=== PATIENT | male | born 1960 | race Caucasian/White ===

== ENCOUNTER 2019-12-11 12:36 | Observation (INO) | payer OTHER ==
[~2019-12-11] VITALS: Ht 190.5 cm; Wt 123.6 kg
[2019-12-11] VITALS (11 sets, daily range): BP systolic 111–139; BP diastolic 61–74
[2019-12-11] MEDS ORDERED: LISI-338 PO (12:53)
[2019-12-11] MEDS ORDERED: EMPA10TA PO (12:53)
[2019-12-11] MEDS ORDERED: CRESTOR5 MG PO (12:53)
[2019-12-11] MEDS ORDERED: INSU100V12 SQ (12:53)
[2019-12-11] MEDS ORDERED: ASPI81TA50 PO (12:53)
[2019-12-11] MEDS ORDERED: HUM100VI5 SQ (12:53)
[2019-12-11 13:04] LABS: HEMATOCRIT 49.2 % (39.0-53.0); HEMOGLOBIN 16.9 g/dL (13.0-17.5); RED BLOOD COUNT 5.5 x10^6/uL (4.30-5.70); RED CELL DISTRIBUTION WIDTH 13.1 % (11.5-14.5); WHITE BLOOD COUNT 8.1 x10^3/uL (4.0-11.0)
[2019-12-11 13:11] LABS: CALCIUM 9.4 mg/dL (8.5-10.1); CREATININE 0.9 mg/dL (0.7-1.3); GFR 86.1
[2019-12-11 13:16] LABS: PROTHROMBIN TIME PATIENT 12.1 SEC (11.7-14.0)
[2019-12-11] MEDS ORDERED: LIDOCAINE 1% PF 2 ML VIAL. ONE (13:32)
[2019-12-11] MEDS ORDERED: IODIXANOL 320 MG/ML 100 ML VIAL. ONE (13:32)
[2019-12-11] MEDS ORDERED: fentaNYL PF VIAL 100 MCG/2 ML VIAL IV ONE (13:45)
[2019-12-11] MEDS ORDERED: MIDAZOLAM HCL/PF 5 MG/5 ML VIAL. IV ONE (13:45)
[2019-12-11] MEDS ORDERED: HEPARIN for IV BOLUS 10,000 UNIT/10 ML VIAL. IART ONE (13:45)
[2019-12-11] MEDS ORDERED: CONTRAST GIVEN. MC PRN (13:45)
[2019-12-11] MEDS ORDERED: IODIXANOL 320 MG/ML 100 ML VIAL. IART ONE (13:45)
[2019-12-11] MEDS ORDERED: LIDOCAINE 1% PF 2 ML VIAL. INJ ONE (13:45)
[2019-12-11] MEDS ORDERED: VERAPAMIL 5 MG/2 ML VIAL. IART ONE (13:45)
[2019-12-11] MEDS ORDERED: NITROGLYCERIN 200 MCG/2 ML SYRINGE FOR CATH/VASC LAB. IART ONE (13:45)
[2019-12-11] MEDS ORDERED: BIVALIRUDIN 250 MG VIAL. IV ONE ×3 (14:31→15:00)
[2019-12-11] MEDS ORDERED: ASPIRIN 325 MG TABLET PO ONE (15:00)
[2019-12-11] MEDS ORDERED: TICAGRELOR 90 MG TABLET. PO ONE (15:00)
[2019-12-11] MEDS: IV 1/2 NORMAL SALINE 1,000 ML IV SCH (15:32)
--- NOTE | 2019-12-11 15:32 | PDOC ---
MODERATE SEDATION ASSESSMENT RISKS/ALTERNATIVES Risks/Alternatives Risks and alternatives of this type of sedation and procedure discussed with: RISK/ALTERNATIVES: Patient H & P ON CHART H & P H & P on chart and reviewed for co-morbid conditions and appropriate labs. H&P ON CHART: Yes STATUS PREG STATUS ASSESSED: N/A MEDS/ALLERGIES REVIEWED Meds/Allergies Reviewed Medications and Allergies including time and route of recently administered narcotics and sedatives. MEDS/ALLERGIES REVIEWED: Yes ASA RATING ASA RATING: II AIRWAY ASSESSMENT Airway Assessment Airway patency, oral function limitations, presence of caps, crowns, dentures, partials, and ability to extend neck assessed. AIRWAY ASSESSMENT: Yes MALLAMPATI SCORE MALLAMPATI SCORE: II PRE-SEDATION ASSESSMENT PRE-SEDATION ASSESSMENT: Yes ADRIANNA CABA MD Dec 11, 2019 15:32
--- NOTE | 2019-12-11 15:43 | CARD ---
MR#: [id number] Date of Study: 12/11/2019 Ordering Physician: ADRIANNA NEWSOME, Referring Physician: ADRIANNA NEWSOME Tech: Leticia German APPROVED REPORT Technologist: Leticia German Nurse: Vikki Amin RN Procedure(s) performed: 1. Left heart catheterization and selective coronary angiography via right t ransradial approach 2. Successful PCI/drug eluting stent placement to the left anterior descending artery fl time: 12.8 mins dose: 88 gycm2 contrast: 130 ml visi moderate sedation: 36 mins INDICATION The indication(s) include : unstable angina . CSHA Clinical Frailty Scale CSHA Clinical Frailty Scale: Managing Well Heart Failure Heart Failure: No PROCEDURE NARRATIVE After explaining the risks, benefits and alternative options, informed consent was obtained from get ent. Patient was brought to the cardiac Full Stack Software Developer and right wrist was prepped and draped in the usual fashion after confirming a positive modified Aaron's test. Arterial access was obtained in the righ t radial artery and a 6 Greek sheath was inserted. 6 Greek Maxwell and 6 Greek JR4 catheters were used to perform selective angiography of the left and right coronary arteries respectively. The follo wing findings were noted. FINDINGS Coronary angiography: a. The left main coronary artery arose from the left sinus of Valsalva, gave rise to the left anteri or descending and left circumflex arteries and did not show any significant stenosis. b. The left anterior descending artery showed critical 90-95% stenosis involving the midsegment. c. The left circumflex artery did not show any significant stenosis. d. The right coronary artery was a large and dominant vessel arising from the right sinus of Valsalv a that did not show any significant stenosis. INTERVENTIONS The left main coronary artery was engaged with a 6 Greek EBU 3.5 guide catheter. The stenosis in the midsegment of the left anterior descending artery was crossed with a 0.014 inch Umbrella Here Pro water guid ewire. This was predilated with a 3.0 x 12 mm euphora balloon following which this was successfully t reated with a 3.5 x 18 mm resolute thao drug-eluting stent. Follow-up angiography showed resolution o f the stenosis to 0% with RADHA-3 distal flow. Patient tolerated the procedure well. Hemostasis was ac hieved using TR band. There were no immediate complications. RADHA Flow RADHA Flow (Pre-Intervention): RADHA-2 RADHA Flow (Post-Intervention): RADHA-3 Conclusion 1. Severe single-vessel coronary artery disease involving left anterior descending artery 2. Successful PCI/drug eluting stent placement to the left anterior descending artery Recommendations 1. Aspirin 81 mg daily 2. Ticagrelor 90 mg twice daily 3. Cardiovascular risk factor modification 4. Check 2-D echo to assess LV systolic function Signed by : Adrianna Newsome, Electronically Approved : 12/11/2019 15:43:21
[2019-12-11] MEDS ORDERED: fentaNYL PF VIAL 100 MCG/2 ML VIAL IV PRN (15:45)
[2019-12-11] MEDS ORDERED: ACETAMINOPHEN 325 MG TABLET. PO PRN (15:45)
[2019-12-11] MEDS ORDERED: NITROGLYCERIN SUBLINGUAL 0.4 MG BOTTLE OF 25. SL PRN (15:45)
[2019-12-11] MEDS ORDERED: 0.9 % SODIUM CHLORIDE 10 ML DISP.SYRIN. IV PRN (15:45)
[2019-12-11] MEDS ORDERED: INSULIN NPH/REG INSULIN 70/30 300 UNITS/3 ML INSULN.PEN. SQ SCH (17:00)
[2019-12-11] MEDS ORDERED: ROSU10TA26 PO (17:04)
[2019-12-11] MEDS: CARVEDILOL 3.125 MG TABLET. PO SCH (18:14)
--- NOTE | 2019-12-11 19:45 | NUR ---
Pt in bed assessment completed vss poc explained pt denied pain at bedside call light in reach will resume care and continue to monitor pt.Rt wrist vascular site with positive pulse all air out of tr band will monitor site.
[2019-12-11] MEDS ORDERED: ATORVASTATIN CALCIUM 40 MG TABLET. PO SCH ×2 (21:00)
[2019-12-12] MEDS: IV 1/2 NORMAL SALINE 1,000 ML IV SCH (01:32)
[2019-12-12 06:14] LABS: CALCIUM 8.6 mg/dL (8.5-10.1); CREATININE 0.8 mg/dL (0.7-1.3); GFR 98.6; POTASSIUM 3.7 mmol/L (3.5-5.1)
[2019-12-12 07:00] VITALS: BP 129/69
[2019-12-12] MEDS ORDERED: TICA90TA PO (07:41)
[2019-12-12] MEDS ORDERED: ROSU10TA26 PO (07:41)
[2019-12-12] MEDS ORDERED: CARV3.1210 PO (07:41)
[2019-12-12] MEDS ORDERED: NITR0.4T24 SL (07:41)
--- NOTE | 2019-12-12 07:43 | PDOC3 ---
SARAHY QUARLES RESTAURANT BUSSER 12/12/19 0743: Discharge Summary Visit Information Date of Admission: Dec 11, 2019 Date of Discharge: Dec 12, 2019 Admitting Diagnosis: Unstable angina, DM2, HTN, HLP Final Diagnosis CAD, post PCI, DM2, HTN, HLP Brief Hospital Course Allergies Allergies Coded Allergies Type Severity Reaction Last Updated Verified Penicillins Allergy Intermediate Hives 12/11/19 Yes metformin Adverse Reaction Intermediate Diarrhea 12/11/19 Yes Vital Signs Vital Signs Date Time Temp Pulse Resp B/P (MAP) Pulse Ox O2 Delivery O2 Flow Rate FiO2 12/11/19 22:47 98.6 70 16 111/64 (80) 96 Room Air 98.6 12/11/19 15:12 2.0 Lab Results Laboratory Tests Test 12/11/19 12:55 12/11/19 17:19 12/11/19 21:23 12/12/19 05:08 White Blood Count 8.1 x10^3/uL (4.0-11.0) Red Blood Count 5.50 x10^6/uL (4.30-5.70) Hemoglobin 16.9 g/dL (13.0-17.5) Hematocrit 49.2 % (39.0-53.0) Mean Corpuscular Volume 90 fL (79-100) Mean Corpuscular Hemoglobin 31 pg (25-35) Mean Corpuscular Hemoglobin Concent 34 g/dL (31-37) Red Cell Distribution Width 13.1 % (11.5-14.5) Platelet Count 217 x10^3/uL (140-400) Prothrombin Time 12.1 SEC (11.7-14.0) Prothromb Time International Ratio 0.9 (0.8-1.1) Sodium Level 144 mmol/L (136-145) 140 mmol/L (136-145) Potassium Level 4.0 mmol/L (3.5-5.1) 3.7 mmol/L (3.5-5.1) Chloride Level 104 mmol/L (98-107) 104 mmol/L (98-107) Carbon Dioxide Level 29 mmol/L (21-32) 26 mmol/L (21-32) Anion Gap 11 (6-14) 10 (6-14) Blood Urea Nitrogen 21 mg/dL (8-26) 19 mg/dL (8-26) Creatinine 0.9 mg/dL (0.7-1.3) 0.8 mg/dL (0.7-1.3) Estimated GFR (Cockcroft-Gault) 86.1 98.6 Glucose Level 114 mg/dL (70-99) 96 mg/dL (70-99) Calcium Level 9.4 mg/dL (8.5-10.1) 8.6 mg/dL (8.5-10.1) Glucose (Fingerstick) 211 mg/dL (70-99) 138 mg/dL (70-99) Laboratory Tests Test 12/11/19 12:55 12/11/19 17:19 12/11/19 21:23 12/12/19 05:08 White Blood Count 8.1 x10^3/uL (4.0-11.0) Red Blood Count 5.50 x10^6/uL (4.30-5.70) Hemoglobin 16.9 g/dL (13.0-17.5) Hematocrit 49.2 % (39.0-53.0) Mean Corpuscular Volume 90 fL (79-100) Mean Corpuscular Hemoglobin 31 pg (25-35) Mean Corpuscular Hemoglobin Concent 34 g/dL (31-37) Red Cell Distribution Width 13.1 % (11.5-14.5) Platelet Count 217 x10^3/uL (140-400) Prothrombin Time 12.1 SEC (11.7-14.0) Prothromb Time International Ratio 0.9 (0.8-1.1) Sodium Level 144 mmol/L (136-145) 140 mmol/L (136-145) Potassium Level 4.0 mmol/L (3.5-5.1) 3.7 mmol/L (3.5-5.1) Chloride Level 104 mmol/L (98-107) 104 mmol/L (98-107) Carbon Dioxide Level 29 mmol/L (21-32) 26 mmol/L (21-32) Anion Gap 11 (6-14) 10 (6-14) Blood Urea Nitrogen 21 mg/dL (8-26) 19 mg/dL (8-26) Creatinine 0.9 mg/dL (0.7-1.3) 0.8 mg/dL (0.7-1.3) Estimated GFR (Cockcroft-Gault) 86.1 98.6 Glucose Level 114 mg/dL (70-99) 96 mg/dL (70-99) Calcium Level 9.4 mg/dL (8.5-10.1) 8.6 mg/dL (8.5-10.1) Glucose (Fingerstick) 211 mg/dL (70-99) 138 mg/dL (70-99) Brief Hospital Course Mr. Mena is a 59 yo male admitted fo planned C. He was seen in our office with UA features with notable cardiac risk factors DM2, HTN, and HLP. He was noted with 1V CAD and S/P PCI/HÉCTOR to LAD and tolerated procedure well. No arrhythmias overnight maintaining SR. Right radial arteriotomy site intact without erythema or swelling, neurovascular status to right hand intact. VSS. Denies any CP or SOA. Ambulatory without difficulty. He will go home with baby ASA and brilinta and with addition of coreg. Encouraged HBPM and outpt cardiac rehab. He resides at [place] to which he inquire with [facility] place for cardiac rehab. Last noted A1C per pt was 7.3 and encouraged to see his PCP for further DM optimization. TTE will be done as an outpt. Discussed post cath care. Discharge Information Condition at Discharge: Stable Follow Up: Weeks (4) Disposition/Orders: D/C to Home Scheduled Aspirin (Aspir-Low) 81 Mg Tablet., 81 MG PO DAILY for , (Reported) Entered as Reported by: KIRK JENKINS on 12/11/191252 Last Taken: Unknown Dose on 12/11/19 Last Action: New Order on 12/11/191252 by KIRK JENKINS Carvedilol (Carvedilol ) 3.125 Mg Tablet, 3.125 MG PO BIDWMEALS for CAD, #60 Ref 3 Prescribed by: SARAHY QUARLES on 12/12/19 0741 Empagliflozin (Jardiance) 10 Mg Tablet, 10 MG PO DAILY for dm, (Reported) Entered as Reported by: KIRK JENKINS on 12/11/191252 Last Taken: Unknown Dose on 12/11/19 Last Action: New Order on 12/11/191252 by KIRK JENKINS Hum Insulin Nph/Reg Insulin Hm (Novolin 70-30 100 Unit/Ml Vial) 100 Unit/1 Ml Vial, 52 UNIT SQ DAILYWSUP for dm, (Reported) Entered as Reported by: KIRK JENKINS on 12/11/191252 Last Taken: Unknown Dose on 12/10/19 Last Action: Converted on 12/11/191536 by ADRIANNA CABA Insuln Asp Prt/Insulin Aspart (Novolog Mix 70-30 Vial) 100 Unit/1 Ml Vial, 60 UNIT SQ DAILYWBKFT for dm, (Reported) Entered as Reported by: KIRK JENKINS on 12/11/191252 Last Taken: Unknown Dose on 12/11/19 Last Action: Converted on 12/11/191536 by ADRIANNA CABA Lisinopril (Lisinopril) 5 Mg Tablet, 5 MG PO DAILY for FOR HYPERTENSION, #30 Ref 0 (Reported) Entered as Reported by: KIRK JENKINS on 12/11/191252 Last Taken: Unknown Dose on 12/11/19 Last Action: Continued on 12/11/191536 by ADRIANNA CABA Rosuvastatin Calcium (Rosuvastatin Calcium) 10 Mg Tablet, 20 MG PO DAILY08 for HLD, #30 Ref 3 Prescribed by: SARAHY QUARLES on 12/12/19740 Ticagrelor (Brilinta) 90 Mg Tablet, 90 MG PO BID for cad, #60 Ref 3 Prescribed by: SARAHY QUARLES on 12/12/19740 Scheduled PRN Nitroglycerin (Nitrostat) 0.4 Mg Tab.subl, 0.4 MG SL PRN Q5MIN PRN for CHEST PAIN, #20 Ref 1 Prescribed by: SARAHY QUARLES on 12/12/19740 Discontinued Medications Rosuvastatin Calcium (Crestor) 5 Mg Tablet, 2 TAB PO DAILY for , #30 Ref 5 (Reported) Entered as Reported by: KIRK JENKINS on 12/11/191252 Last Taken: Unknown Dose on 12/11/19 Last Action: Discontinued on 12/11/191538 by ADRIANNA CABA Patient Instructions Patient Instructions GENERAL INSTRUCTIONS: 1. Your dressing should be removed prior to leaving the hospital. 2. It is OK to shower the day after your procedure. 3. If you received stents, be sure to carry your stent information card with you in your wallet/purse at all times. 4. Call the office immediately at [phone] if you notice any fever or if there is redness, worsening tenderness/pain, increased bruising, or drainage from the puncture site. 5. Should you have bleeding from the site, lie down immediately & put pressure on the site. The pressure should be hard enough to stop the bleeding. Have the nearest person call 911. DO NOT try to drive to the ER with active bleeding. 6. If you notice a change in color, coolness to touch, or loss of feeling in the affected extremity, come to the emergency room. Please have someone drive you or call 911 if no one is available. DO NOT drive yourself. 7. If you normally take glucophage (metformin), please do not take this medicine for 48 hours following your procedure. 8. DO NOT STOP TAKING YOUR PLAVIX OR ASPIRIN UNLESS IT IS CLEARED BY A SEWER SYSTEM SUPERVISOR OF YOUR STRUCTURAL IRON WORKER AT OUR OFFICE. 9. QUIT SMOKING: the [place] [employer], [place] [employer], & [place] [employer] have cessation resources available on their websites 10. Please have someone available to drive you home from the hospital as you may be limited by sedation medications given during the procedure. Radial Artery (Wrist) access: 1. No pushing, pulling, lifting, typing, or anything that requires repetitive use/movement of the affected wrist for 3 days following your procedure. 2. OK to drive the day following your procedure. (This is because of effects of sedating medications.) Call the office at [phone] for any questions or concerns. ADRIANNA CABA MD 12/12/19 5051: Discharge Summary Brief Hospital Course Brief Hospital Course Patient seen and examined. Agree with APPLIANCES SAMPLE MAKER's assessment and plan. s/p PCI/HÉCTOR to LAD, presently chest pain-free. Agree with 2-D echocardiogram as an outpatient. Continue dual antiplatelet therapy. Follow-up with our office as scheduled. Discharge Information Scheduled Aspirin (Aspir-Low) 81 Mg Tablet., 81 MG PO DAILY for , (Reported) Entered as Reported by: KIRK JENKINS on 12/11/19 1253 Last Taken: Unknown Dose on 12/11/19 Last Action: New Order on 12/11/19 1253 by KIRK JENKINS Carvedilol (Carvedilol ) 3.125 Mg Tablet, 3.125 MG PO BIDWMEALS for CAD, #60 Ref 3 Prescribed by: SARAHY QUARLES on 12/12/19740 Empagliflozin (Jardiance) 10 Mg Tablet, 10 MG PO DAILY for dm, (Reported) Entered as Reported by: KIRK JENKINS on 12/11/191252 Last Taken: Unknown Dose on 12/11/19 Last Action: New Order on 12/11/191252 by KIRK JENKINS Hum Insulin Nph/Reg Insulin Hm (Novolin 70-30 100 Unit/Ml Vial) 100 Unit/1 Ml Vial, 52 UNIT SQ DAILYWSUP for dm, (Reported) Entered as Reported by: KIRK JENKINS on 12/11/191252 Last Taken: Unknown Dose on 12/10/19 Last Action: Converted on 12/11/191536 by ADRIANNA CABA Insuln Asp Prt/Insulin Aspart (Novolog Mix 70-30 Vial) 100 Unit/1 Ml Vial, 60 UNIT SQ DAILYWBKFT for dm, (Reported) Entered as Reported by: KIRK JENKINS on 12/11/191252 Last Taken: Unknown Dose on 12/11/19 Last Action: Converted on 12/11/191536 by ADRIANNA CABA Lisinopril (Lisinopril) 5 Mg Tablet, 5 MG PO DAILY for FOR HYPERTENSION, #30 Ref 0 (Reported) Entered as Reported by: KIRK JENKINS on 12/11/191252 Last Taken: Unknown Dose on 12/11/19 Last Action: Continued on 12/11/191536 by ADRIANNA CABA Rosuvastatin Calcium (Rosuvastatin Calcium) 10 Mg Tablet, 20 MG PO DAILY08 for HLD, #30 Ref 3 Prescribed by: SARAHY QUARLES on 12/12/19740 Ticagrelor (Brilinta) 90 Mg Tablet, 90 MG PO BID for cad, #60 Ref 3 Prescribed by: SRAAHY QUARLES on 12/12/19740 Scheduled PRN Nitroglycerin (Nitrostat) 0.4 Mg Tab.subl, 0.4 MG SL PRN Q5MIN PRN for CHEST PAIN, #20 Ref 1 Prescribed by: SARAHY QUARLES on 12/12/19740 Discontinued Medications Rosuvastatin Calcium (Crestor) 5 Mg Tablet, 2 TAB PO DAILY for , #30 Ref 5 (Reported) Entered as Reported by: KIRK JENKINS on 12/11/19 1253 Last Taken: Unknown Dose on 12/11/19 Last Action: Discontinued on 12/11/19 1539 by SARAHY FELTCHER APRN Dec 12, 2019 07:43 ADRIANNA CABA MD Dec 12, 2019 17:17
[2019-12-12] MEDS ORDERED: ASPIRIN ENTERIC COATED 81 MG TABLET.DR. PO SCH (08:00)
[2019-12-12] MEDS ORDERED: INSULIN NPH/REG INSULIN 70/30 300 UNITS/3 ML INSULN.PEN. SQ SCH (08:00)
[2019-12-12 08:11] VITALS: BP 111/64
[2019-12-12] MEDS: CARVEDILOL 3.125 MG TABLET. PO SCH (08:11)
[2019-12-12] MEDS ORDERED: LISINOPRIL 5 MG TABLET. PO SCH (09:00)
[2019-12-12] MEDS ORDERED: TICAGRELOR 90 MG TABLET. PO SCH (09:00)
--- NOTE | 2019-12-12 10:13 | NUR ---
Discharge Note: LIAM RIVERA Discharge instructions and discharge home medications reviewed with Patient and a copy given. All questions have been answered and understanding verbalized. The following instructions and handouts were given: post heart cath edu, cardiac diet and chest pain. Discontinued iv lines and intact . Patient discharged to home with self-care via private vehicle.
== END 2019-12-12 08:15 | disposition home or self-care (01) ==
LOC: CCL 12:36 → 2 SOUTH 14:54
PROVIDERS: ADMIT Internal Medicine Cardiovascular Disease; ATTEND Internal Medicine Cardiovascular Disease
DX: I20.0 Unstable angina (principal); I10 Essential (primary) hypertension; E11.9 Type 2 diabetes mellitus without complications; E78.5 Hyperlipidemia, unspecified; Z79.82 Long term (current) use of aspirin; Z79.4 Long term (current) use of insulin
CPT/HCPCS: 36415; 80048; 82962; 85027; 85610; 92928; 93454; 96372; 96374; 96375; C1725; C1769; C1874; C1887; C1892; G0378; G0379; J0583; J1644; J1815; J2250; J3010; J3490; Q9967; 99152; 99153

== ENCOUNTER → 2019-12-12 | Outpatient (CLI) | payer OTHER ==
[~2019-12-12] MED LIST: ASPI81TA50 PO; CARV3.1210 PO; CRESTOR5 MG PO; EMPA10TA PO; HUM100VI5 SQ; INSU100V12 SQ; LISI-338 PO; NITR0.4T24 SL; ROSU10TA26 PO; TICA90TA PO
[2019-12-12 08:11] VITALS: BP 111/64
--- NOTE | 2019-12-12 13:26 | CARD ---
MR#: [id number] Date of Study: 12/12/2019 Ordering Physician: ADRIANNA NEWSOME, Referring Physician: ADRIANNA NEWSOME, Tech: Leah Leigh RDCS APPROVED REPORT EXAM: Two-dimensional and M-mode echocardiogram with Doppler and color Doppler. Other Information Quality : GoodHR: 67bpm Rhythm : NSR INDICATION CAD RISK FACTORS Hypertension Diabetes 2D DIMENSIONS RVDd3.9 (2.9-3.5cm)Left Atrium(2D)3.5 (1.6-4.0cm) IVSd1.4 (0.7-1.1cm)Aortic Root(2D)4.0 (2.0-3.7cm) LVDd5.3 (3.9-5.9cm)LVOT Diameter2.5 (1.8-2.4cm) PWd1.3 (0.7-1.1cm)LVDs3.4 (2.5-4.0cm) FS (%) 36.8 %SV89.8 ml LVEF(%)66.2 (>50%) Aortic Valve LVOT Peak Girish.81.0cm/s Mitral Valve MV E Mnubkuqe05.6cm/sMV DECEL [id number] MV A Cvtlnuml97.9cm/sE/A Ratio1.3 MV A [id number] Pulmonary Valve PV Peak Xqegclqz277.4cm/s Tricuspid Valve RAP [id number] Pulmonary Vein S1 Egkozwgy40.3cm/sD2 Vvybdwip96.1cm/s PVa [id number] LEFT VENTRICLE The left ventricle is normal size. There is mild concentric left ventricular hypertrophy. The left ve ntricular systolic function is normal. The Ejection Fraction is 55%. There is normal LV segmental wal l motion. Transmitral Doppler flow pattern is Grade II-pseudonormal filling dynamics. There is no vargas tricular septal defect visualized. RIGHT VENTRICLE The right ventricle is normal size. The right ventricular systolic function is normal. ATRIA The left atrium size is normal. The right atrium size is normal. The interatrial septum is intact wit h no evidence for an atrial septal defect or patent foramen ovale as noted on 2-D or Doppler imaging. AORTIC VALVE The aortic valve is mildly sclerotic. Doppler and Color Flow revealed no significant aortic regurgita tion. There is no significant aortic valvular stenosis. MITRAL VALVE The mitral valve is normal in structure and function. There is no mitral valve stenosis. Doppler and Color-flow revealed trace mitral regurgitation. TRICUSPID VALVE The tricuspid valve is normal in structure and function. Doppler and Color Flow revealed no tricuspid valve regurgitation noted. Unable to assess PA pressure. There is no tricuspid valve stenosis. PULMONIC VALVE The pulmonary valve is normal in structure and function. Doppler and Color Flow revealed mild pulmoni c valvular regurgitation. There is no pulmonic valvular stenosis. GREAT VESSELS The aortic root is normal in size. The ascending aorta is normal in size. The pulmonary artery is nor mal. The IVC is normal in size and collapses >50% with inspiration. PERICARDIAL EFFUSION There is no pleural effusion. There is no evidence of significant pericardial effusion. Critical Notification Critical Value: No <Conclusion> The left ventricular systolic function is normal. The Ejection Fraction is 55%. There is normal LV segmental wall motion. Transmitral Doppler flow pattern is Grade II-pseudonormal filling dynamics. Doppler and Color-flow revealed trace mitral regurgitation. There is no evidence of significant pericardial effusion. Signed by : Adrianna Newsome, Electronically Approved : 12/12/2019 13:25:59
== END | disposition home or self-care (01) ==
LOC: ECHO 11:37
PROVIDERS: ATTEND Internal Medicine Cardiovascular Disease
DX: I08.8 Other rheumatic multiple valve diseases (principal); I25.10 Atherosclerotic heart disease of native coronary artery without angina pectoris
CPT/HCPCS: 93306

== ENCOUNTER → 2020-08-13 | Outpatient (CLI) | payer OTHER ==
--- NOTE | 2020-08-13 10:42 | RAD ---
INDICATION: Reason: CAD / Spl. Instructions: / History: COMPARISON: None. FINDINGS: Spectral Doppler, color and grayscale ultrasound images are obtained through the bilateral leg arterial system. There is some scattered plaque seen. Vascular flow is seen within the bilateral common femoral, superficial femoral, popliteal as well as the calf arteries with triphasic or biphasic waveforms without a focal high-grade stenosis seen. IMPRESSION: * No hemodynamically significant stenosis of the bilateral leg arteries. Electronically signed by: Luis Fernando Walker MD (08/13/2020 10:39 AM) [id number]
--- NOTE | 2020-08-13 15:11 | CARD ---
MR#: [id number] Date of Study: 08/13/2020 Ordering Physician: ADRIANNA CABA, Referring Physician: ADRIANNA CABA Tech: Anali Quinn RDCS APPROVED REPORT EXAM: Two-dimensional and M-mode echocardiogram with Doppler and color Doppler. Other Information Quality : Good INDICATION Cardiac Disease: CAD 2D DIMENSIONS RVDd3.6 (2.9-3.5cm)Left Atrium(2D)3.4 (1.6-4.0cm) IVSd1.5 (0.7-1.1cm)Aortic Root(2D)3.7 (2.0-3.7cm) LVDd4.9 (3.9-5.9cm)LVOT Diameter2.0 (1.8-2.4cm) PWd1.0 (0.7-1.1cm)LVDs3.3 (2.5-4.0cm) FS (%) 32.2 %SV67.3 ml Aortic Valve AoV Peak Girish.89.7cm/sAoV VTI18.7cm AO Peak GR.3.2mmHgLVOT Peak Girish.75.3cm/s AO Mean GR.2mmHgAVA (VMAX)2.73cm2 BELLA (VTI)2.80cm2 Mitral Valve MV E Vlywjhoa95.5cm/sMV DECEL AWTY202bs MV A Apoihiqf26.0cm/sE/A Ratio0.6 Tricuspid Valve TR P. Acrmkeln770mw/sRAP FMFSOZNI8ieBy TR Peak Gr.93gmZuTIYS41wcYf Pulmonary Vein S1 Bvyjfuer09.8cm/sD2 Kkrmrpuk67.6cm/s LEFT VENTRICLE The left ventricle is normal size. There is mild concentric left ventricular hypertrophy. Left ventri charles systolic function is intact. The Ejection Fraction is 50-55%. There is borderline hypokinesis of the inferior wall. Transmitral Doppler flow pattern is Grade I-abnormal relaxation pattern. RIGHT VENTRICLE The right ventricle is normal size. The right ventricular systolic function is normal. ATRIA The left atrium size is normal. The right atrium size is normal. The interatrial septum is intact wit h no evidence for an atrial septal defect or patent foramen ovale as noted on 2-D or Doppler imaging. AORTIC VALVE The aortic valve is calcified but opens well. Doppler and Color Flow revealed no significant aortic r egurgitation. There is no significant aortic valvular stenosis. MITRAL VALVE The mitral valve is calcified but opens well. There is no evidence of mitral valve prolapse. There is no mitral valve stenosis. Doppler and Color Flow revealed trace mitral valve regurgitation. TRICUSPID VALVE The tricuspid valve is normal in structure and function. Doppler and Color Flow revealed trace tricus pid regurgitation. The PA pressure was estimated at 17 mmHg. There is no tricuspid valve stenosis. PULMONIC VALVE The pulmonary valve is normal in structure and function. Doppler and Color Flow revealed mild pulmoni c valvular regurgitation. There is no pulmonic valvular stenosis. GREAT VESSELS The aortic root is normal in size. The ascending aorta is moderately dilated at 3.8 cm. The IVC is no rmal in size and collapses >50% with inspiration. PERICARDIAL EFFUSION There is no evidence of significant pericardial effusion. Critical Notification Critical Value: No <Conclusion> The left ventricle is normal size. Left ventricle systolic function is intact. The Ejection Fraction is 50-55%. There is borderline hypokinesis of the inferior wall. There is mild concentric left ventricular hypertrophy. Doppler and Color Flow revealed no significant aortic regurgitation. There is no significant aortic valvular stenosis. Doppler and Color Flow revealed trace mitral valve regurgitation. Doppler and Color Flow revealed trace tricuspid regurgitation. The PA pressure was estimated at 17 mmHg. The ascending aorta is moderately dilated at 3.8 cm. Signed by : Cruz Hernandez MD Electronically Approved : 08/13/2020 15:11:14
== END ==
LOC: US 10:24
PROVIDERS: ATTEND Internal Medicine Cardiovascular Disease
DX: I08.8 Other rheumatic multiple valve diseases (principal); I25.10 Atherosclerotic heart disease of native coronary artery without angina pectoris
CPT/HCPCS: 93306; 93925

== ENCOUNTER → 2021-02-18 | Outpatient (CLI) | payer OTHER ==
[~2021-02-18] MED LIST changes: -LISI-338 PO; +LISI-517 PO; +REGADENOSON 0.4 MG/5 ML DISP.SYRIN. IV ONE
[2021-02-18 12:02] LABS: CHOLESTEROL/HDL RATIO 1.8
--- NOTE | 2021-02-19 10:04 | RAD ---
MR#: [id number] Date of Study: 02/18/2021 Ordering Physician: ADRIANNA CABA, Referring Physician: GRETCHEN TREVINO Tech: RT Rober (R) (N) APPROVED REPORT Test Type: Pharmacological Stress Nurse/Tech: Sakina Soto R.N. Test Indications: CAD Cardiac History: stent 2020, HTN, DM Medications: See Electronic Medical Record Medical History: See Electronic Medical Record Resting ECG: SR Resting Heart Rate: 67 bpm Resting Blood Pressure: 133/68mmHg Pretest Chest Pain: No chest pain Nurse/Tech Notes S1S1, lungs CTA Consent: The procedure was explained to the patient in lay terms. Informed consent was witnessed. Grabiel eout was entered into [employer]. History and Stress Test performed by RT Rober (R) (N) Pharm. Details Pharmacologic stress testing was performed using 0.4mg per 5ml of regadenoson given intravenously ove r 7-10 seconds. Stress Symptoms SOA POST EXERCISE Reason for Termination: Reached target heart rate Max HR: 101 bpm Max Blood Pressure: 133/68mmHg Blood Pressure response to exercise: Normal blood pressure response during stress. Heart Rate response to exercise: wnl Chest Pain: No. Arrhythmia: Yes. noted multiple but not frequent pvc's ST Change: No. INTERPRETATION Stress EKG Conclusion: No evidence of stress induced EKG changes. Imaging Protocol IMAGE PROTOCOL: Rest Tc-99m/stress Tc-99m 1 day Rest: Stress: Viability: Radiopharm.Tc99m AscolaevrEs17i Sestamibi Dose10.6mCi 32mCi Duration 13min. 13min. Img Date 02/18/2021 02/18/2021 Inj-Img [id number]. 60min. Rest Admin Site:IV - Right AntecubitalAdministrator:RT Rober (R)(N) Stress Admin Site: IV - Right AntecubitalAdministrator: GRETCHEN BrandtTCRashida, ARRT (R)(N) STRESS DATA End Diast. Vol.134.0mlAv. Heart Rate88.0bpm LVEDV index BSA54.0mlCardiac Output0.0L/min End Syst. Vol.33.0mlCO Index BSA0.0L/min LVESV index BSA13.0mlMyocardial Zwuo631.0g Eject. Ewwiqllf75.0% Stress Scores Regional WT0.00Summed WT0.00 Regional WM0.00Summed WM0.00 The rest and stress images show normal perfusion, normal contraction and thickening. LV Perf. Quant 17 Seg. SSS2.00 17 Seg. SRS4.00 17 Seg. SDS1.00 Stress Defect Extent (% LAD)0.00Rest Defect Extent (% LAD)0.00Rev. Defect Extent (% LAD)0.00 Stress Defect Extent (% LCX) 11.30Rest Defect Extent (% LCX)5.00Rev. Defect Extent (% LCX)2.50 Stress Defect Extent (% RCA)0.00Rest Defect Extent (% RCA)15.60Rev. Defect Extent (% RCA)0.00 Stress Defect Extent (% MARIANO)3.70Rest Defect Extent (% MARIANO)6.50Rev. Defect Extent (% MARIANO)1.30 Other Information Quality:Average Risk Assessment: Low Risk Conclusion 1. No evidence of EKG changes with stress testing. 2. Normal perfusion at stress/rest. 3. Subdiaphragmatic attenuation artifact noted, worse on rest images. 4. Low risk study. 5. EF > 60%. Signed by : Cedric Estrada, Electronically Approved : 02/19/2021 10:04:22
== END ==
LOC: NM 08:27
PROVIDERS: ATTEND Internal Medicine Cardiovascular Disease
DX: I25.10 Atherosclerotic heart disease of native coronary artery without angina pectoris (principal); I10 Essential (primary) hypertension
CPT/HCPCS: 36415; 78452; 80061; 93017; A9500; J2785